=== PATIENT | male | born 1970 | race Caucasian/White ===

== ENCOUNTER 2022-01-22 08:01 | Emergency (ER) | payer OTHER ==
[2022-01-22 08:43] LABS: BASOPHIL 0.8 % (0-2); EOSINOPHIL 1.9 % (0-5); HCT 47.4 % (42.0-52.0); HGB 17.1 g/dl (13.2-18.0); MCH 31.4 pg (25.0-31.0); MCHC 36.1 g/dL (32.0-36.0); MCV 87.1 fL (78.0-100.0); NRBC 0; PLT 198 K/uL (150-400); RBC 5.44 M/uL (4.70-6.00); RDW 11.6 % (11.5-14.0); WBC 11.8 K/uL (4.0-10.5)
[2022-01-22 08:58] LABS: ALBUMIN 4.4 g/dL (3.4-5.0); BILIRUBIN - TOTAL 0.4 mg/dL (0.2-1.0); BUN/CREAT RATIO (CALC) 18.3 RATIO; CREATININE 1.15 mg/dL (0.67-1.17); GLOBULIN (CALCULATION) 3.1 g/dL; POTASSIUM 4.6 mmol/L (3.5-5.1); TOTAL PROTEIN 7.5 g/dL (6.4-8.2)
[2022-01-22 09:47] LABS: CORONAVIRUS 2019 SARS-COV-2 NEGATIVE (NEGATIVE); INFLUENZA A NAA NEGATIVE (NEGATIVE)
== END 2022-01-22 11:38 | disposition home or self-care (01) ==
LOC: FER 08:01
PROVIDERS: Emergency Medicine
DX: J98.01 Acute bronchospasm (principal); R07.81 Pleurodynia; I10 Essential (primary) hypertension; Z87.891 Personal history of nicotine dependence; Z20.822 Contact with and (suspected) exposure to COVID-19
CPT/HCPCS: 36415; 71045; 80053; 83880; 84484; 85025; 85379; 93005; 94640; 94664; U0002